=== PATIENT | female | born 1940 | race African-American/Black ===

== ENCOUNTER 2024-11-14 17:52 | Inpatient (IN) | payer MEDICARE, OTHER ==
[~2024-11-14] VITALS: Ht 160 cm; Wt 65.8 kg
[~2024-11-14 17:52] MED LIST: ATOR20TA65 PO; CLOP75TA33 PO; DONE10TA43 PO; SITA25TA3 PO
[2024-11-14] MEDS: SODIUM CHLORIDE 0.9% (SEPSIS BOLUS) IV ONE (18:21)
[2024-11-14] MEDS: CEFTRIAXONE 1GM/50ML 50 ML IV ONE (18:21)
[2024-11-14 18:50] LABS: BASOPHILS % 0.1 % (0.0-2.0); EOSINOPHILS % 0.0 % (0.0-5.0); HEMATOCRIT. 45.6 % (36.0-48.0); HEMOGLOBIN. 14.6 g/dL (12.0-16.0); LYMPHOCYTES % 7.3 % (20.0-50.0); MEAN PLATELET VOLUME 11.5 fl (7.4-10.4); MONOCYTES % 7.9 % (2.0-8.0); NEUTROPHILS % 84.7 % (40.0-76.0); PLATELET 82 x1000/uL (130-400); RED BLOOD CELL COUNT 4.77 mill/uL (4.2-5.4); RED CELL DISTRIBUTION WIDTH 14.3 % (11.6-14.6)
[2024-11-14 18:52] LABS: BG BASE EXCESS -1.0 mmol/L (-2.0-3.0); BG CARBOXYHEMOGLOBIN 1.2 % (0.5-1.5); BG DEOXYHEMOGLOBIN 3.6 % (0.0-5.0); BG FRACTION INSPIRED OXYGEN 21; BG HCO3 ACT 22.8 mmol/L (21.0-28.0); BG METHEMOGLOBIN 0.3 % (0.5-1.5); BG OXYGEN SATURATION 96.3 % (94.0-98.0); BG OXYHEMOGLOBIN 94.9 % (94.0-98.0); BG PCO2 35.5 mmHg (32.0-45.0); BG PH 7.426 (7.350-7.450); BG PO2 84.1 mmHg (83.0-108.0); BG SAMPLE SITE RIGHT BRACHIAL; BG TOTAL HEMOGLOBIN 13.9 g/dL (12.0-16.0); BG VENT MODE ROOM AIR
[2024-11-14 19:12] LABS: ASPARTATE AMINOTRANSFERASE 48 IU/L (<34)
[2024-11-14 19:13] LABS: BILIRUBIN DIRECT 0.2 mg/dL (<=3.0); BILIRUBIN TOTAL 0.6 mg/dL (0.1-1.0); PROTEIN TOTAL 6.8 g/dL (6.0-8.3)
[2024-11-14 19:19] LABS: CREATININE 4.0 mg/dL (0.6-1.0)
[2024-11-14 19:21] LABS: INR 1.5
[2024-11-14 19:27] LABS: TROPONIN I HIGH SENSITIVITY 152 ng/L (3.0-34); UREA NITROGEN BLOOD 119 mg/dL (9-23)
[2024-11-14 21:00] VITALS: BP 110/83; PULSE 101; RESP 19; TEMP 36.9; O2SAT 94
[2024-11-14] MEDS ORDERED: LOSA50TA41 PO (21:30)
[2024-11-14 21:45] VITALS: BP 110/83; PULSE 101; RESP 18; TEMP 36.8072
[2024-11-14] MEDS ORDERED: DEXTROSE 50% WATER 50ML SYRINGE IV PRN (23:30)
[2024-11-14] MEDS ORDERED: ENOXAPARIN 40MG/0.4ML SYR SUBCUT SCH (23:30)
[2024-11-14] MEDS ORDERED: CLONIDINE 0.1MG TABLET PO PRN (23:30)
[2024-11-14] MEDS ORDERED: IPRATROPIUM/ALBUTEROL 0.5-3(2.5)MG/3ML NEB NEB PRN (23:30)
[2024-11-14] MEDS ORDERED: ACETAMINOPHEN 325MG TABLET PO PRN (23:30)
[2024-11-14] MEDS ORDERED: HYDROCODONE/ACETAMINOPHEN 5/325MG TABLET PO PRN (23:30)
[2024-11-14] MEDS ORDERED: ONDANSETRON HCL 4MG/2ML INJ IV PRN (23:30)
[2024-11-14] MEDS ORDERED: MAGNESIUM/ALUMINUM HYDROXIDE/SIMETHICONE 30ML UDC PO PRN (23:30)
[2024-11-15] VITALS: BP 98/60; PULSE 89; RESP 19; TEMP 36.6; O2SAT 98
[2024-11-15] MEDS: DEXT 5%/0.45% NACL 1000ML 1,000 ML IV SCH (00:46)
[2024-11-15] MEDS: VANCOMYCIN 1.25GM/250ML 250 ML IV NR (00:47)
[2024-11-15] MEDS: PIPERACILLIN/TAZO 3.375G/50ML 50 ML IV SCH (03:20)
[2024-11-15 04:00] VITALS: BP 106/69; PULSE 82; RESP 21; TEMP 36.1; O2SAT 99
[2024-11-15] MEDS: BLOOD SUGAR DIAGNOSTIC STRIP TEST SCH (07:20)
[2024-11-15] MEDS: INSULIN LISPRO 100 UNITS/ML SUBCUT SCH (07:50)
[2024-11-15 08:00] VITALS: BP 93/63; PULSE 76; RESP 17; TEMP 36.3; O2SAT 97
[2024-11-15 09:39] LABS: BASOPHILS % 0.2 % (0.0-2.0); EOSINOPHILS % 0.0 % (0.0-5.0); HEMATOCRIT. 39.3 % (36.0-48.0); HEMOGLOBIN. 12.6 g/dL (12.0-16.0); LYMPHOCYTES % 11.2 % (20.0-50.0); MEAN PLATELET VOLUME 12.0 fl (7.4-10.4); MONOCYTES % 6.0 % (2.0-8.0); NEUTROPHILS % 82.6 % (40.0-76.0); PLATELET 62 x1000/uL (130-400); RED BLOOD CELL COUNT 4.12 mill/uL (4.2-5.4); RED CELL DISTRIBUTION WIDTH 14.3 % (11.6-14.6)
[2024-11-15 10:11] LABS: TROPONIN I HIGH SENSITIVITY 86.0 ng/L (3.0-34); UREA NITROGEN BLOOD 119.0 mg/dL (9-23)
[2024-11-15 10:12] LABS: CREATININE 3.2 mg/dL (0.6-1.0)
[2024-11-15] MEDS: PANTOPRAZOLE SODIUM 40 MG/VIAL IV SCH (10:13)
[2024-11-15 12:00] VITALS: BP 105/63; PULSE 78; RESP 17; TEMP 36.3; O2SAT 99
[2024-11-15 16:00] VITALS: BP 94/67; PULSE 89; RESP 17; TEMP 36.4; O2SAT 97
[2024-11-15 20:00] VITALS: BP 116/67; PULSE 83; RESP 18; TEMP 36.6; O2SAT 99
[2024-11-15 21:37] LABS: TROPONIN I HIGH SENSITIVITY 38 ng/L (3.0-34)
[2024-11-16] VITALS: BP 112/84; PULSE 86; RESP 19; TEMP 36.4; O2SAT 97
[2024-11-16 04:00] VITALS: BP 130/72; PULSE 81; RESP 19; TEMP 36.9; O2SAT 98
[2024-11-16 08:00] VITALS: BP 113/68; PULSE 82; RESP 16; TEMP 36.2; O2SAT 99
[2024-11-16 09:30] LABS: BASOPHILS % 0.2 % (0.0-2.0); EOSINOPHILS % 0.2 % (0.0-5.0); HEMATOCRIT. 39.5 % (36.0-48.0); HEMOGLOBIN. 12.6 g/dL (12.0-16.0); LYMPHOCYTES % 7.4 % (20.0-50.0); MEAN PLATELET VOLUME 12.0 fl (7.4-10.4); MONOCYTES % 5.6 % (2.0-8.0); NEUTROPHILS % 86.6 % (40.0-76.0); PLATELET 63 x1000/uL (130-400); RED BLOOD CELL COUNT 4.17 mill/uL (4.2-5.4); RED CELL DISTRIBUTION WIDTH 14.2 % (11.6-14.6)
[2024-11-16 09:54] LABS: CREATININE 2.5 mg/dL (0.6-1.0); UREA NITROGEN BLOOD 97.0 mg/dL (9-23)
[2024-11-16] MEDS ORDERED: NALOXONE HCL 0.4MG/ML VIAL IV PRN (11:15)
[2024-11-16 12:00] VITALS: BP 108/68; PULSE 84; RESP 16; TEMP 36; O2SAT 100
[2024-11-16] MEDS: KCL 20MEQ/100ML PREMIX 100 ML IV SCH (13:36)
[2024-11-16] MEDS: DEXTROSE 5% WATER 1,000 ML IV SCH (13:46)
[2024-11-16 16:00] VITALS: BP 107/64; PULSE 89; RESP 18; TEMP 36.2; O2SAT 100
[2024-11-16 20:00] VITALS: BP 112/62; PULSE 90; RESP 18; TEMP 36.7; O2SAT 100
[2024-11-16] MEDS: VANCOMYCIN 1.25GM/250ML 250 ML IV SCH (22:38)
[2024-11-17] VITALS: BP 117/63; PULSE 92; RESP 18; TEMP 36.5; O2SAT 100
[2024-11-17 04:00] VITALS: BP 108/68; PULSE 85; RESP 18; TEMP 36.4; O2SAT 100
[2024-11-17 07:32] LABS: BASOPHILS % 0.1 % (0.0-2.0); EOSINOPHILS % 0.8 % (0.0-5.0); HEMATOCRIT. 43.4 % (36.0-48.0); HEMOGLOBIN. 13.2 g/dL (12.0-16.0); LYMPHOCYTES % 8.9 % (20.0-50.0); MEAN PLATELET VOLUME 11.4 fl (7.4-10.4); MONOCYTES % 8.0 % (2.0-8.0); NEUTROPHILS % 82.2 % (40.0-76.0); PLATELET 60 x1000/uL (130-400); RED BLOOD CELL COUNT 4.31 mill/uL (4.2-5.4); RED CELL DISTRIBUTION WIDTH 15.3 % (11.6-14.6)
[2024-11-17 07:34] LABS: CREATININE 1.8 mg/dL (0.6-1.0); UREA NITROGEN BLOOD 59.0 mg/dL (9-23)
[2024-11-17 08:00] VITALS: BP 126/69; PULSE 79; RESP 19; TEMP 35.6; O2SAT 99
[2024-11-17] MEDS: PANTOPRAZOLE SODIUM 40 MG/VIAL IV SCH (08:45)
[2024-11-17] MEDS ORDERED: FAMOTIDINE 20MG/2ML VIAL IV SCH (09:00)
[2024-11-17 12:00] VITALS: BP 118/68; PULSE 78; RESP 16; TEMP 35.8; O2SAT 99
[2024-11-17] MEDS: PIPERACILLIN/TAZO 3.375G/50ML IV SCH (15:18)
[2024-11-17 16:00] VITALS: BP 115/69; PULSE 78; RESP 16; TEMP 36.3; O2SAT 100
[2024-11-17 20:00] VITALS: BP 92/57; PULSE 89; RESP 19; TEMP 36.2; O2SAT 97
[2024-11-18] VITALS (7 sets, daily range): BP systolic 99–121; BP diastolic 54–71; PULSE 79–89; RESP 16–20; TEMP 36.1–36.5; O2SAT 97–100
[2024-11-18] MEDS: VANCOMYCIN 750MG/150ML (BAXTER) IV SCH (17:27)
[2024-11-18 19:02] LABS: BASOPHILS % 0.1 % (0.0-2.0); EOSINOPHILS % 0.8 % (0.0-5.0); HEMATOCRIT. 34.9 % (36.0-48.0); HEMOGLOBIN. 11.4 g/dL (12.0-16.0); LYMPHOCYTES % 7.9 % (20.0-50.0); MEAN PLATELET VOLUME 12.1 fl (7.4-10.4); MONOCYTES % 7.0 % (2.0-8.0); NEUTROPHILS % 84.2 % (40.0-76.0); PLATELET 77 x1000/uL (130-400); RED BLOOD CELL COUNT 3.70 mill/uL (4.2-5.4); RED CELL DISTRIBUTION WIDTH 14.1 % (11.6-14.6)
[2024-11-18 19:18] LABS: CREATININE 1.6 mg/dL (0.6-1.0)
[2024-11-18 19:19] LABS: UREA NITROGEN BLOOD 49.0 mg/dL (9-23)
[2024-11-18] MEDS: KCL 20MEQ/100ML PREMIX 100 ML IV SCH (21:41)
[2024-11-19] VITALS: BP 98/46; PULSE 77; RESP 18; TEMP 35.9; O2SAT 98
[2024-11-19 04:00] VITALS: BP 108/78; PULSE 84; RESP 18; TEMP 36.5; O2SAT 97
[2024-11-19 08:00] VITALS: BP_SYST 109; BP_DIAS 57; BP_DIAS 59; PULSE 76; RESP 16; TEMP 35.3; O2SAT 97
[2024-11-19 12:00] VITALS: BP 104/65; PULSE 81; RESP 18; TEMP 36.3; O2SAT 100
[2024-11-19 13:25] LABS: CREATININE 1.3 mg/dL (0.6-1.0); UREA NITROGEN BLOOD 42.0 mg/dL (9-23)
[2024-11-19 16:00] VITALS: BP 117/69; PULSE 91; RESP 19; TEMP 36.2; O2SAT 99
[2024-11-19] MEDS ORDERED: VANCOMYCIN 1GM/200ML PMX (BAXTER) IV SCH (18:00)
[2024-11-19 20:00] VITALS: BP 120/60; PULSE 91; RESP 19; TEMP 36.4; O2SAT 98
[2024-11-20 01:00] VITALS: BP 99/47; PULSE 86; RESP 18; TEMP 36.3; O2SAT 97
[2024-11-20 04:00] VITALS: BP 105/65; PULSE 74; RESP 19; TEMP 36.3; O2SAT 99
[2024-11-20 08:00] VITALS: BP 116/70; PULSE 81; RESP 16; TEMP 36.3; O2SAT 96
[2024-11-20 11:34] LABS: CREATININE 1.2 mg/dL (0.6-1.0); UREA NITROGEN BLOOD 27.0 mg/dL (9-23)
[2024-11-20 12:00] VITALS: BP 97/58; PULSE 74; RESP 18; TEMP 36.1; O2SAT 97
[2024-11-20 16:00] VITALS: BP 101/51; PULSE 55; RESP 16; TEMP 36.6; O2SAT 96
[2024-11-20] MEDS: POTASSIUM CHLORIDE 20MEQ TABLET SR PO SCH (18:32)
[2024-11-20 20:00] VITALS: BP 116/63; PULSE 93; RESP 19; TEMP 36.3; O2SAT 98
[2024-11-21] VITALS: BP 106/61; PULSE 82; RESP 21; TEMP 36.3; O2SAT 97
[2024-11-21 04:00] VITALS: BP 108/58; PULSE 90; RESP 19; TEMP 36.2; O2SAT 97
[2024-11-21 08:00] VITALS: BP 106/66; PULSE 82; RESP 16; TEMP 36.3; O2SAT 97
[2024-11-21 08:02] LABS: BASOPHILS % 0.1 % (0.0-2.0); EOSINOPHILS % 1.4 % (0.0-5.0); HEMATOCRIT. 29.4 % (36.0-48.0); HEMOGLOBIN. 9.9 g/dL (12.0-16.0); LYMPHOCYTES % 14.2 % (20.0-50.0); MEAN PLATELET VOLUME 10.8 fl (7.4-10.4); MONOCYTES % 9.3 % (2.0-8.0); NEUTROPHILS % 75.0 % (40.0-76.0); PLATELET 111 x1000/uL (130-400); RED BLOOD CELL COUNT 3.16 mill/uL (4.2-5.4); RED CELL DISTRIBUTION WIDTH 13.2 % (11.6-14.6)
[2024-11-21 11:55] LABS: BASOPHILS % 0.1 % (0.0-2.0); EOSINOPHILS % 1.3 % (0.0-5.0); HEMATOCRIT. 30.2 % (36.0-48.0); HEMOGLOBIN. 10.1 g/dL (12.0-16.0); LYMPHOCYTES % 9.7 % (20.0-50.0); MEAN PLATELET VOLUME 10.7 fl (7.4-10.4); MONOCYTES % 9.2 % (2.0-8.0); NEUTROPHILS % 79.7 % (40.0-76.0); PLATELET 120 x1000/uL (130-400); RED BLOOD CELL COUNT 3.26 mill/uL (4.2-5.4); RED CELL DISTRIBUTION WIDTH 13.1 % (11.6-14.6)
[2024-11-21 12:00] VITALS: BP 96/58; PULSE 70; RESP 16; TEMP 36.6; O2SAT 96
[2024-11-21 12:17] LABS: CREATININE 1.2 mg/dL (0.6-1.0); UREA NITROGEN BLOOD 25.0 mg/dL (9-23)
[2024-11-21 16:00] VITALS: BP 100/57; PULSE 71; RESP 16; TEMP 36.4; O2SAT 96; O2SAT 97
[2024-11-21 17:27] VITALS: BP 100/57; PULSE 71; TEMP 97.5; O2SAT 97
== END 2024-11-21 19:45 | DRG 871 ==
LOC: ER 17:52 → EDBEDREQTM 19:32 → EDBEDREQ 19:32 → 6WST 21:21
PROVIDERS: ADMIT Internal Medicine; ATTEND Internal Medicine
DX: A41.1 Sepsis due to other specified staphylococcus (principal); G93.41 Metabolic encephalopathy; N17.0 Acute kidney failure with tubular necrosis; R65.21 Severe sepsis with septic shock; E87.20 Acidosis, unspecified; E87.0 Hyperosmolality and hypernatremia; M62.82 Rhabdomyolysis; N39.0 Urinary tract infection, site not specified; Z68.30 Body mass index [BMI] 30.0-30.9, adult; R62.7 Adult failure to thrive; E86.0 Dehydration; E78.00 Pure hypercholesterolemia, unspecified; E11.65 Type 2 diabetes mellitus with hyperglycemia; F03.90 Unspecified dementia, unspecified severity, without behavioral disturbance, psychotic disturbance, mood disturbance, and anxiety; I11.0 Hypertensive heart disease with heart failure; I50.9 Heart failure, unspecified; J44.9 Chronic obstructive pulmonary disease, unspecified; E86.1 Hypovolemia
CPT/HCPCS: 36415; 36600; 71045; 76770; 80048; 80076; 80202; 82010; 82375; 82550; 82805; 82962; 83605; 83930; 84145; 84484; 85025; 87077; 87186; 93005; 93306; 93970; 97162; 99291; J0696; J1815; J2470; J2543; J3373; J3480; J7030; J7070